=== PATIENT | male | born 1985 | race Caucasian/White ===

== ENCOUNTER 2017-12-13 09:52 | Emergency (ER) | payer SELFPAY ==
[2017-12-13 09:59] VITALS: TEMP 97.9
[2017-12-13] MEDS ORDERED: IPRATROPIUM/ALBUTEROL 3 ML DEYVIAL IH ONE (10:06)
[2017-12-13] MEDS ORDERED: ACETAMINOPHEN 500 MG TAB PO ONE (10:10)
--- NOTE | 2017-12-13 10:17 | EDPHY ---
H & P Stated Complaint: SOB, ST - Personal History Current Tetanus/Diphtheria Vaccine: Unsure Current Tetanus Diphtheria and Acellular Pertussis (TDAP): Unsure - Medical/Surgical History Hx Asthma: No Hx Chronic Respiratory Disease: No Hx Diabetes: No Hx Cardiac Disease: No Hx Renal Disease: No Hx Cirrhosis: No Hx Alcoholism: No Hx HIV/AIDS: No Hx Splenectomy or Spleen Trauma: No - Social History Smoking Status: Never smoked Time Seen by Provider: 12/13/17 10:06 HPI/ROS: CHIEF COMPLAINT: Flu-like symptoms, sore throat x3 days HISTORY OF PRESENT ILLNESS: 32-year-old immunocompetent male, no influenza vaccination, nonsmoker, currently on the work release program living in a correctional facility, complaining of 3 days of sore throat, flu-like symptoms, fever, chills. He does not have money to buy [id number] supportive care No cough. No chest pain. No nausea or vomiting. No rash. REVIEW OF SYSTEMS: A ten point review of systems was performed and is negative with the exception of the items mentioned in the HPI PAST MEDICAL & SURGICAL HISTORY: No pertinent medical or surgical history SOCIAL HISTORY: Nonsmoker. PHYSICAL EXAM (Prior to examination, patient consented to physical exam, hands were washed and my usual and customary physical exam procedures followed) 1) GENERAL: Well-developed, well-nourished, alert and oriented. Appears nontoxic 2) HEAD: Normocephalic, atraumatic 3) HEENT: Pupils equal, round, reactive to light bilaterally. Sclera anicteric. Nasopharynx, oropharynx, clear, no lesions. No tonsillar enlargement no exudate. Ears bilaterally with normal tympanic membranes. 4) NECK: Full range of motion, no meningeal signs. 5) LUNGS: Clear auscultation bilaterally, no wheezes, no rhonchi, no retractions. 6) HEART: Regular rate and rhythm, no murmur, no heave, no gallop. 7) ABDOMEN: No guarding, no rebound, no focal tenderness, negative McBurney's, negative Gaspar's, negative Rovsing's, negative peritoneal sign, 8) MUSCULOSKELETAL: Moving all extremities, no focal areas of tenderness, no obvious trauma. No peripheral edema or discoloration. 9) BACK: No CVA tenderness, no midline vertebral tenderness, no fluctuance, no step-off, no obvious trauma, no visual or palpable abnormality. 10) SKIN: No rash, no petechiae. 11) Psychiatric: Patient is oriented X 3, there is no agitation. DIFFERENTIAL DIAGNOSIS: In no particular including but not limited to influenza, strep pharyngitis, meningitis (Ty Gillis) Constitutional: Initial Vital Signs Temperature (C) 36.6 C 12/13/17 09:56 Heart Rate 53 L 12/13/17 09:56 Respiratory Rate 16 12/13/17 09:56 O2 Sat (%) 98 12/13/17 09:56 O2 Delivery Mode Room Air Allergies/Adverse Reactions: No Known Allergies Allergy (Unverified 12/13/17 09:55) Home Medications: Medication Instructions Recorded NK [No Known Home Meds] 12/13/17 Tylenol PM (*) 12/13/17 Medical Decision Making ED Course/Re-evaluation: 10:15 a.m.: Plan will be strep and influenza testing as the patient is current living in a correctional facility. 10:52 a.m. Patient was re-evaluated with serial examinations. His strep and influenza testing are negative. We discussed more than likely viral etiology, possible RSV. We We discussed supportive care. He is not hypoxic, breathing comfortably. I do not think that hospitalization is indicated at this time. I do not think that antibiotics or antiviral therapy is indicated at this time. Usual and customary respiratory precautions instructions provided. Feels comfortable being discharged. Care of patient under supervision of secondary supervising physician Dr Graham with whom I discussed care. . (Ty Gillis) Other Provider: The patient was evaluated and managed by the Physician Car Knocker.My co- signature indicates that I have reviewed this chart and I agree with the findings and plan of care as documented. I am the secondary supervising physician. (Karuna Graham) - Data Points Medications Given: Discontinued Medications Acetaminophen (Tylenol) 1,000 mg PO EDNOW ONE Stop: 12/13/17 10:11 Last Admin: 12/13/17 10:13 Dose: 1,000 mg Albuterol/Ipratropium (Duoneb) 3 ml IH EDNOW ONE Stop: 12/13/17 10:07 Last Admin: 12/13/17 10:13 Dose: 3 ml Departure - Departure Disposition: Home, Routine, Self-Care Clinical Impression: Upper respiratory infection Condition: Good Instructions: Viral Syndrome (ED) Additional Instructions: Adult Pain & Fever Control: We recommend Acetaminophen (Tylenol) and Ibuprofen (Motrin,Advil) for pain and fever control. When fever is high or pain severe, both drugs can be used at the same time, but at different intervals. Please note the time differences. Your dose is: Acetaminophen 1000mg every 4 to 6 hours Ibuprofen 800mg every 6 hours with food OR Note: do not take Acetaminophen with Hydrocodone (Vicodin, Lortab) or Oycodone (Percocet). These medications also contain Acetaminophen. No more than 3000mg of Acetaminophen should be taken in 24 hours (for an adult). Referrals: [facility],. [Clinic] - 2-3 days, call for appt. Stand Alone Forms: Work Excuse
[2017-12-13 11:46] VITALS: BP 147/74; PULSE 68; RESP 18; O2SAT 99
== END 2017-12-13 11:46 | disposition home or self-care (01) ==
DX: J06.9 Acute upper respiratory infection, unspecified (principal)